=== PATIENT | female | born 1950 | race Native Hawaiian/Other Pacific Islander ===

== ENCOUNTER 2019-11-07 09:01 | Outpatient (CLI) | payer OTHER, MEDICARE | END 2019-11-07 19:14 | disposition home or self-care (01) | LOC: LABW 09:01 | DX: R05 Cough (principal) | CPT/HCPCS: 87070; 87205 ==

== ENCOUNTER 2020-08-29 08:36 | Outpatient (CLI) | payer OTHER, MEDICARE | END 2020-08-29 19:59 | disposition home or self-care (01) | LOC: US 08:36 | PROVIDERS: ATTEND Physician Assistant | DX: R10.32 Left lower quadrant pain (principal); R10.12 Left upper quadrant pain ==

== ENCOUNTER 2020-12-03 08:32 | Outpatient (CLI) | payer OTHER, MEDICARE | END 2020-12-03 19:18 | disposition home or self-care (01) | LOC: CT 08:32 | PROVIDERS: ATTEND Nurse Practitioner Family | DX: R10.12 Left upper quadrant pain (principal); R11.0 Nausea; N64.59 Other signs and symptoms in breast | CPT/HCPCS: 36415; 82565; 84520; Q9963 ==

== ENCOUNTER 2020-12-04 10:28 | Outpatient (CLI) | payer OTHER, MEDICARE | END 2020-12-04 19:12 | disposition home or self-care (01) | LOC: MAMMO 10:28 | PROVIDERS: ATTEND Nurse Practitioner Family | DX: N64.59 Other signs and symptoms in breast (principal) ==

== ENCOUNTER 2021-07-10 13:24 | Outpatient (CLI) | payer OTHER, MEDICARE | END 2021-07-10 20:44 | disposition home or self-care (01) | LOC: RAD 13:24 | PROVIDERS: ATTEND Internal Medicine | DX: R05.3 Chronic cough (principal) ==